=== PATIENT | female | born 1975 | race Hispanic/Latino ===

== ENCOUNTER → 2017-06-02 | Outpatient (REF) | payer OTHER | LOC: M LAB REF 16:25 | PROVIDERS: ATTEND Physician Assistant | DX: R30.0 Dysuria (principal) ==

== ENCOUNTER → 2017-06-19 | Outpatient (CLI) | payer OTHER | LOC: M PAIN 13:45 | DX: M79.1 Myalgia (principal); M47.812 Spondylosis without myelopathy or radiculopathy, cervical region; M50.123 Cervical disc disorder at C6-C7 level with radiculopathy; M54.5 Low back pain; G89.29 Other chronic pain; I10 Essential (primary) hypertension; Z79.899 Other long term (current) drug therapy; Z85.850 Personal history of malignant neoplasm of thyroid; Z85.43 Personal history of malignant neoplasm of ovary | CPT/HCPCS: G0463 ==

== ENCOUNTER → 2017-06-23 | Outpatient (REF) | payer OTHER ==
[2017-06-23 22:03] LABS: FREE T4 1.47 NG/DL (0.76-1.46)
[2017-06-24 11:31] LABS: THYROGLOBULIN ANTIBODY 64.9 U/ML (<60.0)
== END ==
LOC: M LABDRAW1 19:28
DX: Z85.850 Personal history of malignant neoplasm of thyroid (principal); E89.0 Postprocedural hypothyroidism

== ENCOUNTER → 2017-06-27 | Outpatient (REF) | payer OTHER | LOC: M LAB REF 17:53 | DX: R30.0 Dysuria (principal) | CPT/HCPCS: 87086 ==

== ENCOUNTER → 2017-07-06 | Outpatient (CLI) | payer OTHER | LOC: M PAIN 11:00 | DX: M79.1 Myalgia (principal); M47.812 Spondylosis without myelopathy or radiculopathy, cervical region; G89.29 Other chronic pain; E06.3 Autoimmune thyroiditis; I10 Essential (primary) hypertension; Z79.891 Long term (current) use of opiate analgesic; Z79.899 Other long term (current) drug therapy | CPT/HCPCS: G0463 ==

== ENCOUNTER → 2017-07-14 | Outpatient (CLI) | payer OTHER ==
[~2017-07-14] MED LIST: ISOVUE-M 300 61% 15ML VIAL (Q9967) As Ordered; LIDOCAINE 1% SDV INJ 30 ML VIAL As Ordered; diazePAM 5 MG TAB As Ordered; methylPREDNISolone SUSP 40 MG/ML (DEPO-medrol) VIAL (J1030) As Ordered; oxyCODONE 5MG TAB As Ordered
== END ==
LOC: M PAIN 11:45
DX: G89.29 Other chronic pain (principal); M50.13 Cervical disc disorder with radiculopathy, cervicothoracic region; I10 Essential (primary) hypertension; D64.9 Anemia, unspecified; K58.9 Irritable bowel syndrome, unspecified; E28.2 Polycystic ovarian syndrome; Z79.891 Long term (current) use of opiate analgesic; Z79.899 Other long term (current) drug therapy
CPT/HCPCS: J1030

== ENCOUNTER → 2017-08-10 | Outpatient (CLI) | payer OTHER | LOC: M PAIN 14:30 | DX: G89.29 Other chronic pain (principal); M79.1 Myalgia; M47.812 Spondylosis without myelopathy or radiculopathy, cervical region; I10 Essential (primary) hypertension; D64.9 Anemia, unspecified; K58.9 Irritable bowel syndrome, unspecified; E28.2 Polycystic ovarian syndrome; E06.3 Autoimmune thyroiditis; Z79.891 Long term (current) use of opiate analgesic; Z79.899 Other long term (current) drug therapy | CPT/HCPCS: G0463 ==

== ENCOUNTER → 2017-09-03 | Outpatient (CLI) | payer OTHER | LOC: M RAD 15:56 | DX: J32.4 Chronic pansinusitis (principal) | CPT/HCPCS: 70220 ==

== ENCOUNTER → 2017-09-17 | Outpatient (CLI) | payer OTHER ==
[~2017-09-17] MED LIST changes: +BUPIVACAINE HCL 0.25% 10 ML VIAL As Ordered; +BUPIVACAINE HCL 0.25% 30 ML VIAL As Ordered; -ISOVUE-M 300 61% 15ML VIAL (Q9967) As Ordered; -LIDOCAINE 1% SDV INJ 30 ML VIAL As Ordered; +TRIAMCINOLONE ACETONIDE SUSP 40 MG/ML VIAL (J3301) As Ordered; -methylPREDNISolone SUSP 40 MG/ML (DEPO-medrol) VIAL (J1030) As Ordered
== END ==
LOC: M PAIN 09:30
DX: G89.29 Other chronic pain (principal); M54.81 Occipital neuralgia; I10 Essential (primary) hypertension; Z79.899 Other long term (current) drug therapy
CPT/HCPCS: J3301

== ENCOUNTER → 2017-10-16 | Outpatient (CLI) | payer OTHER | LOC: M PAIN 14:15 | DX: M50.20 Other cervical disc displacement, unspecified cervical region (principal); G89.29 Other chronic pain; M79.1 Myalgia; I10 Essential (primary) hypertension; E06.3 Autoimmune thyroiditis; Z79.899 Other long term (current) drug therapy; Z85.850 Personal history of malignant neoplasm of thyroid | CPT/HCPCS: G0463 ==

== ENCOUNTER → 2018-01-18 | Outpatient (CLI) | payer OTHER ==
[~2018-01-18] MED LIST changes: -BUPIVACAINE HCL 0.25% 10 ML VIAL As Ordered; -BUPIVACAINE HCL 0.25% 30 ML VIAL As Ordered; +ISOVUE-M 300 61% 15ML VIAL (Q9967) As Ordered; +LIDOCAINE 1% SDV INJ 30 ML VIAL As Ordered; -TRIAMCINOLONE ACETONIDE SUSP 40 MG/ML VIAL (J3301) As Ordered; +diphenhydrAMINE 25 MG CAP As Ordered; +methylPREDNISolone SUSP 40 MG/ML (DEPO-medrol) VIAL (J1030) As Ordered
== END ==
LOC: M PAIN 13:00
DX: M50.13 Cervical disc disorder with radiculopathy, cervicothoracic region (principal); I10 Essential (primary) hypertension; D64.9 Anemia, unspecified; K58.9 Irritable bowel syndrome, unspecified; M06.9 Rheumatoid arthritis, unspecified; E89.0 Postprocedural hypothyroidism; Z85.850 Personal history of malignant neoplasm of thyroid; E06.3 Autoimmune thyroiditis; E28.2 Polycystic ovarian syndrome; Z79.899 Other long term (current) drug therapy
CPT/HCPCS: J1030

== ENCOUNTER → 2018-04-14 | Outpatient (CLI) | payer OTHER ==
[2018-04-14 15:13] LABS: BASO % 0.5 % (0.0-1.0); EOS # 0.1 10^3/uL (0.0-0.50); EOS % 1.3 % (0.0-3.0); HEMATOCRIT 40.6 % (36.0-47.0); HEMOGLOBIN 12.6 g/dl (12.0-15.5); IMMATURE GRANULOCYTE % 0.4 % (0-3.0); LYMPH # 1.9 10^3/uL (1.5-4.5); LYMPH % 25.3 % (24.0-44.0); MEAN CORPUSCULAR HEMOGLOBIN 27.9 pg (27.0-33.0); MEAN CORPUSCULAR VOLUME 89.8 fl (80.0-96.0); MONO # 0.4 10^3/uL (0.0-0.8); MONO % 5.2 % (0.0-5.0); NEUTROPHILS % 67.3 % (36.0-66.0); PLATELET COUNT, AUTOMATED 535 10^3/uL (150-450); RED BLOOD COUNT 4.52 10^6/uL (4.00-5.40); WHITE BLOOD COUNT 7.4 10^3/uL (4.0-10.0)
[2018-04-14 15:26] LABS: C REACTIVE PROTEIN QUANTITATIV 1.23 MG/DL (0.00-0.30)
[2018-04-14 15:46] LABS: ERYTHROCYTE SEDIMENTATION RATE 26 mm/hr (0-20)
[2018-04-14 16:37] LABS: CONTROL LINE HPYORI INT CTR LINE PRESENT; H PYLORI QUALITATIVE IgG NEGATIVE (NEGATIVE)
[2018-04-17 00:08] LABS: ANCA-ATYPICAL <1:20 titer (Neg:<1:20); ANTI-SACCHAROMYCES CEREV. IgA 25.1 Units (0.0-24.9); ANTI-SACCHAROMYCES CEREV. IgG 69.2 Units (0.0-24.9); CYTOPLASMIC NEUTROP AB ANCA-C <1:20 titer (Neg:<1:20); PERINUCLEAR AB ANCA-P <1:20 titer (Neg:<1:20)
== END ==
LOC: M LAB 12:46
DX: K59.00 Constipation, unspecified (principal)
CPT/HCPCS: 86256

== ENCOUNTER → 2018-04-17 | Outpatient (REF) | payer OTHER | LOC: M LAB REF 13:29 | DX: R39.15 Urgency of urination (principal) ==

== ENCOUNTER → 2018-04-26 | Outpatient (REF) | payer OTHER | LOC: M LAB REF 16:34 | DX: R30.0 Dysuria (principal) ==

== ENCOUNTER → 2018-04-29 | Outpatient (CLI) | payer OTHER | LOC: M LAB 15:20 | DX: R76.11 Nonspecific reaction to tuberculin skin test without active tuberculosis (principal) | CPT/HCPCS: 71046 ==

== ENCOUNTER → 2018-05-05 | Outpatient (REF) | payer OTHER ==
[2018-05-05 21:02] LABS: AMORPHOUS SEDIMENT LARGE (NEGATIVE); APPEARANCE, URINE TURBID (CLEAR); BACTERIA, URINE AUTO 1+ (NEGATIVE); BILIRUBIN, URINE AUTO NEGATIVE (NEGATIVE); BLOOD, URINE BLOOD NEGATIVE (NEGATIVE); COLOR, URINE RED (YELLOW); GLUCOSE, URINE (UA) AUTO NEGATIVE (NEGATIVE); KETONE, URINE AUTO NEGATIVE (NEGATIVE); LEUKOCYTE ESTERASE, URINE AUTO NEGATIVE (NEGATIVE); MUCUS, URINE SMALL (NEGATIVE); NITRITE, URINE AUTO POSITIVE (NEGATIVE); PROTEIN, URINE AUTO NEGATIVE (NEGATIVE); RBC, URINE AUTO 1 /HPF (0-3); SPECIFIC GRAVITY URINE AUTO 1.026 (1.002-1.035); SQUAMOUS EPITHELIAL CELL UR AU 2 /HPF (0-6); WBC, URINE AUTO 2 /HPF (0-3)
[2018-05-05 22:50] LABS: CHLAMYDIA DNA AMPLIFICATION NEGATIVE (NEGATIVE); GC DNA AMPLIFICATION NEGATIVE (NEGATIVE)
== END ==
LOC: M SFHCLUC 09:46
DX: R30.0 Dysuria (principal)
CPT/HCPCS: 81001

== ENCOUNTER → 2018-05-10 | Outpatient (CLI) | payer OTHER ==
[~2018-05-10] MED LIST changes: +BUPIVACAINE HCL 0.25% 30 ML VIAL As Ordered; +TRIAMCINOLONE ACETONIDE SUSP 40 MG/ML VIAL (J3301) As Ordered; -methylPREDNISolone SUSP 40 MG/ML (DEPO-medrol) VIAL (J1030) As Ordered
== END ==
LOC: M PAIN 08:30
DX: G89.29 Other chronic pain (principal); M47.812 Spondylosis without myelopathy or radiculopathy, cervical region; I10 Essential (primary) hypertension; E03.9 Hypothyroidism, unspecified; E06.3 Autoimmune thyroiditis; M06.9 Rheumatoid arthritis, unspecified; Z79.899 Other long term (current) drug therapy; Z85.850 Personal history of malignant neoplasm of thyroid
CPT/HCPCS: J3301

== ENCOUNTER → 2018-05-19 | Outpatient (CLI) | payer OTHER | LOC: M ST 12:15 | DX: R13.10 Dysphagia, unspecified (principal) | CPT/HCPCS: 74230 ==

== ENCOUNTER 2018-05-21 11:12 | Day surgery (SDC) | payer OTHER ==
[~2018-05-21] VITALS: Ht 162.6 cm; Wt 83.0 kg
[~2018-05-21 11:12] MED LIST changes: +BARIUM SULFATE 700 MG TABLET (E-Z-DISK) As Ordered ONE; -BUPIVACAINE HCL 0.25% 30 ML VIAL As Ordered; +E-Z-PAQUE 96% w/w SUSP 176GM BTL As Ordered ONE; +FOLI800C PO; -ISOVUE-M 300 61% 15ML VIAL (Q9967) As Ordered; -LIDOCAINE 1% SDV INJ 30 ML VIAL As Ordered; +LISI20TA3 PO; +MAGN400T2 PO; +METH2.5T48 PO; +MIRA3350 PO; +NS 1,000 ML IV ONE; +SENN18TA PO; +TIZA2CAP6 PO; -TRIAMCINOLONE ACETONIDE SUSP 40 MG/ML VIAL (J3301) As Ordered; +VARIBAR NECTAR 40% w/v 240ML SUSP BTL As Ordered ONE; +VARIBAR PUDDING 40% w/v 230ML TUBE As Ordered ONE; +ZANTTAB PO; +[UNRECOGNIZED DRUG - CODE] PO; +bentyl PO; -diazePAM 5 MG TAB As Ordered; -diphenhydrAMINE 25 MG CAP As Ordered; -oxyCODONE 5MG TAB As Ordered
[2018-05-21] MEDS ORDERED: PROPOFOL 500 MG/50 ML VIAL As Ordered ONE (11:55)
[2018-05-21] MEDS ORDERED: fentaNYL 100 MCG/2 ML INJECTION (J3010) As Ordered ONE (11:58)
[2018-05-21] MEDS ORDERED: LIDOCAINE 2% INJ 100 MG/5 ML SDV (FOR ANES.) As Ordered ONE (12:01)
[2018-05-21] MEDS ORDERED: GLYCOPYRROLATE INJ 0.2 MG/ML 2 ML VIAL As Ordered ONE (12:56)
--- NOTE | 2018-05-21 13:42 | ROOR ---
Patient Name: Cinda Le Procedure Date: 05/21/2018 12:44 PM Date of : 1975 Age: 42 Room: [facility] Gender: Female Note Status: Finalized Procedure: Upper GI endoscopy Indications: Epigastric abdominal pain, Dysphagia Providers: Kameron Bowling MD Referring MD: ARUN DIAS MD Requesting Provider: Medicines: Monitored Anesthesia Care Complications: No immediate complications. Procedure: Pre-Anesthesia Assessment: - Prior to the procedure, a History and Physical was performed, and patient medications and allergies were reviewed. The patient is competent. The risks and benefits of the procedure and the sedation options and risks were discussed with the patient. All questions were answered and informed consent was obtained. Patient identification and proposed procedure were verified by the physician, the nurse and the anesthesiologist in the procedure room. Mental Status Examination: alert and oriented. Airway Examination: normal oropharyngeal airway and neck mobility. Respiratory Examination: clear to auscultation. CV Examination: normal. Prophylactic Antibiotics: The patient does not require prophylactic antibiotics. Prior Anticoagulants: The patient has taken no previous anticoagulant or antiplatelet agents. ASA Grade Assessment: II - A patient with mild systemic disease. After reviewing the risks and benefits, the patient was deemed in satisfactory condition to undergo the procedure. The anesthesia plan was to use monitored anesthesia care (MAC). Immediately prior to administration of medications, the patient was re-assessed for adequacy to receive sedatives. The heart rate, respiratory rate, oxygen saturations, blood pressure, adequacy of pulmonary ventilation, and response to care were monitored throughout the procedure. The physical status of the patient was re-assessed after the procedure. The Endoscope was introduced through the mouth, and advanced to the second part of duodenum. The upper GI endoscopy was accomplished without difficulty. The patient tolerated the procedure well. Findings: The Z-line was regular and was found 39 cm from the incisors. Biopsies were obtained from the proximal and distal esophagus with cold forceps for histology of suspected eosinophilic esophagitis. Verification of patient identification for the specimen was done by the physician and nurse using the patient's name, date and medical record number. Estimated blood loss was minimal. No endoscopic abnormality was evident in the esophagus to explain the patient's complaint of dysphagia. Diffuse mild inflammation characterized by erythema and granularity was found in the gastric antrum. Biopsies were taken with a cold forceps for Helicobacter pylori testing. No gross lesions were noted in the duodenal bulb, in the second portion of the duodenum and in the area of the papilla. Biopsies for histology were taken with a cold forceps for evaluation of celiac disease. Impression: - Z-line regular, 39 cm from the incisors. Biopsied. - No endoscopic esophageal abnormality to explain patient's dysphagia. - Gastritis. Biopsied. - No gross lesions in the duodenal bulb, in the second portion of the duodenum and in the area of the papilla. Biopsied. Recommendation: - Patient has a contact number available for emergencies. The signs and symptoms of potential delayed complications were discussed with the patient. Return to normal activities tomorrow. Written discharge instructions were provided to the patient. - Resume previous diet. - Continue present medications. - Await pathology results. - Based on the biopsy results you will receive a phone call from GI clinic in 2-3 weeks to review the pathology results AND/OR your results will be faxed to your Primary care physician. - Return to primary care physician. Kameron Bowling MD Kameron Bowling MD 05/21/2018 1:41:53 PM This report has been signed electronically. Number of Addenda: 0 Note Initiated On: 05/21/2018 12:44 PM Estimated Blood Loss: Estimated blood loss was minimal.
--- NOTE | 2018-05-21 13:46 | ROOR ---
Patient Name: Cinda Le Procedure Date: 05/21/2018 12:46 PM Date of : 1975 Age: 42 Room: [facility] Gender: Female Note Status: Finalized Procedure: Colonoscopy Indications: Suspected Crohn's disease, Constipation Providers: Kameron Bowling MD Referring MD: ARUN DIAS MD Requesting Provider: Medicines: Monitored Anesthesia Care Complications: No immediate complications. Procedure: Pre-Anesthesia Assessment: - Prior to the procedure, a History and Physical was performed, and patient medications and allergies were reviewed. The patient is competent. The risks and benefits of the procedure and the sedation options and risks were discussed with the patient. All questions were answered and informed consent was obtained. Patient identification and proposed procedure were verified by the physician, the nurse and the anesthesiologist in the procedure room. Mental Status Examination: alert and oriented. Airway Examination: normal oropharyngeal airway and neck mobility. Respiratory Examination: clear to auscultation. CV Examination: normal. Prophylactic Antibiotics: The patient does not require prophylactic antibiotics. Prior Anticoagulants: The patient has taken no previous anticoagulant or antiplatelet agents. ASA Grade Assessment: II - A patient with mild systemic disease. After reviewing the risks and benefits, the patient was deemed in satisfactory condition to undergo the procedure. The anesthesia plan was to use monitored anesthesia care (MAC). Immediately prior to administration of medications, the patient was re-assessed for adequacy to receive sedatives. The heart rate, respiratory rate, oxygen saturations, blood pressure, adequacy of pulmonary ventilation, and response to care were monitored throughout the procedure. The physical status of the patient was re-assessed after the procedure. The Colonoscope was introduced through the anus and advanced to the terminal ileum, with identification of the appendiceal orifice and IC valve. The colonoscopy was performed without difficulty. The patient tolerated the procedure well. The quality of the bowel preparation was [Prep Quality]. [Anatomical Structures]. Findings: The perianal and digital rectal examinations were normal. The terminal ileum appeared normal. Biopsies were taken with a cold forceps for histology. Verification of patient identification for the specimen was done by the physician and nurse using the patient's name, date and medical record number. Estimated blood loss was minimal. Normal mucosa was found in the entire colon. Four biopsies were obtained in the rectum and in the sigmoid colon with cold forceps for histology. Non-bleeding external and internal hemorrhoids were found during retroflexion. The hemorrhoids were small. Impression: - The examined portion of the ileum was normal. Biopsied. - Normal mucosa in the entire examined colon. - Non-bleeding external and internal hemorrhoids. - Four biopsies were obtained in the rectum and in the sigmoid colon. Recommendation: - Patient has a contact number available for emergencies. The signs and symptoms of potential delayed complications were discussed with the patient. Return to normal activities tomorrow. Written discharge instructions were provided to the patient. - Resume previous diet. - Continue present medications. - Await pathology results. - Repeat colonoscopy at age 51 for screening purposes. - Based on the biopsy results you will receive a phone call from GI clinic in 2-3 weeks to review the pathology results AND/OR your results will be faxed to your Primary care physician. - Return to primary care physician. Kameron Bowling MD Kameron Bowling MD 05/21/2018 1:45:40 PM This report has been signed electronically. Number of Addenda: 0 Note Initiated On: 05/21/2018 12:46 PM Estimated Blood Loss: Estimated blood loss was minimal.
[2018-05-21 14:00] VITALS: BP 126/75
== END 2018-05-21 14:37 | disposition home or self-care (01) ==
LOC: M OPP 11:12
PROVIDERS: ATTEND Internal Medicine Gastroenterology
DX: K64.8 Other hemorrhoids (principal); K63.5 Polyp of colon; R13.10 Dysphagia, unspecified; K29.70 Gastritis, unspecified, without bleeding; R10.13 Epigastric pain; M06.9 Rheumatoid arthritis, unspecified; I10 Essential (primary) hypertension; K58.9 Irritable bowel syndrome, unspecified; G43.909 Migraine, unspecified, not intractable, without status migrainosus; Z79.899 Other long term (current) drug therapy; Z85.850 Personal history of malignant neoplasm of thyroid
CPT/HCPCS: 43239; 45380; 88305; J3010

== ENCOUNTER → 2018-05-24 | Outpatient (CLI) | payer OTHER ==
[~2018-05-24] MED LIST changes: -BARIUM SULFATE 700 MG TABLET (E-Z-DISK) As Ordered ONE; -E-Z-PAQUE 96% w/w SUSP 176GM BTL As Ordered ONE; -NS 1,000 ML IV ONE; -VARIBAR NECTAR 40% w/v 240ML SUSP BTL As Ordered ONE; -VARIBAR PUDDING 40% w/v 230ML TUBE As Ordered ONE
--- NOTE | 2018-06-17 00:52 | ECWPNPC ---
PATIENT NAME: JOSIE MARTE : 1975 GENDER: FEMALE VISIT DATE: 05/24/2018 DISCHARGE DATE: 05/24/18 1553 VISIT LOCKED DATE TIME: PHYSICIAN: RAMU FLETCHER RESOURCE: RAMU FLETCHER REASON FOR APPOINTMENT 1. POST PROCEDURE HISTORY OF PRESENT ILLNESS DEPRESSION SCREENING: PHQ-2 IN LAST TWO WEEKS HAVE YOU BEEN BOTHERED BY LITTLE INTEREST OR PLEASURE IN DOING THINGSNO FEELING DOWN, DEPRESSED, OR HOPELESSNO HISTORY OF PRESENT ILLNESS: HERE FOR POST PROCEDURE F/U.HAD BILATERAL CERVICAL THERAPEUTIC FACET BLOCK ON 05-10-18.REPORTING IMPROVEMENT IN RIGHT NECK PAIN.HAS NOT HELPED HEADACHES OR SEVERE BURNING PAIN IN NECK.RECENTLY DIAGNOSED WITH RHEUMATOID ARTHRITIS AND WILL BE STARTING GRISEL SOON.DISCUSSED MEDICATION AND TREATMENT OPTIONS. PAIN THE PATIENT DESCRIBES THE PAIN... FALL RISK SCREENING: SCREENING :NO FALLS IN THE PAST YEAR CURRENT MEDICATIONS TAKING PRILOSEC 20 MG CAPSULE DELAYED RELEASE 1 CAPSULE ORALLY ONCE A DAY TAKING ZANTAC 150 MG TABLET 1 TABLET AT BEDTIME ORALLY ONCE A DAY TAKING BENTYL 10 MG CAPSULE 2 CAPSULES ORALLY PRN TAKING MIRALAX - PACKET 1 PACKET MIXED WITH 8 OUNCES OF FLUID ORALLY ONCE A DAY TAKING MAGNESIUM OXIDE 250 MG TABLET 1 TABLET NEEDED ORALLY TWICE A DAY TAKING LISINOPRIL 20 MG TABLET 1 TABLET ORALLY ONCE A DAY TAKING SYNTHROID 175 MCG TABLET 1 TABLET ON AN EMPTY STOMACH IN THE MORNING ORALLY ONCE A DAY TAKING TIZANIDINE HCL 4 MG TABLET 1 TAB ORALLY Q6H PRN MDD4 TAKING FIORICET/CODEINE [id number] MG CAPSULE 1 CAPSULE NEEDED ORALLY Q6HPRN MDD4 #40 TAB SHOULD LAST 30 DAYS TAKING OTEZLA 20MG ORAL DAILY NOT-TAKING PHENAZOPYRIDINE HCL 200 MG TABLET 2 TABLETS AFTER MEALS ORALLY THREE TIMES A DAY NOT-TAKING METHOTREXATE 2.5 MG TABLET 6 TABS ORALLY ONCE WEEKLY NOT-TAKING FLUCONAZOLE 150 MG TABLET 1 TABLET ORALLY ONCE, MAY REPEAT X 1 DOSE IN 72 HOURS IF NO RELIEF (FOR YEAST INFECTION) NOT-TAKING MACROBID 100 MG CAPSULE 1 CAPSULE WITH FOOD ORALLY EVERY 12 HRS MEDICATION LIST REVIEWED AND RECONCILED WITH THE PATIENT PAST MEDICAL HISTORY THYROID CANCER HTN CHRONIC NECK PAIN HASHIMOTOS PCOS ANEMIA IBS RHEUMATOID ARTHRITIS ALLERGIES N.K.D.A. SURGICAL HISTORY TOTAL THYROIDECTOMY 2010 SYMPATHOMECTOMY FOR HYPERHIDROSIS 2000 BLADDER SLING 2006 COLONOSCOPY/ENDOSCOPY 05/2019 SOCIAL HISTORY GENERAL: TOBACCO USE ARE YOU A:NONSMOKER LUNG CANCER SCREENING SMOKING STATUS:NON SMOKER ALCOHOL SCREENING DID YOU HAVE A DRINK CONTAINING ALCOHOL IN THE PAST YEAR?NO POINTS0 INTERPRETATIONNEGATIVE RECREATIONAL DRUG USE DRUG USE?NO CAFFEINE CAFFEINE USE?NO JUDAISM JUDAISM MU-ISM LANGUAGE LANGUAGES SPOKEN:MONTSERRATIAN EDUCATION LEVEL OF EDUCATION:NOT FINISHED COLLEGE LEARNING BARRIERS / SPECIAL NEEDS BARRIERS TO LEARNING?NO HEARING IMPAIRED?NO VISION IMPAIRED?NO COGNITIVELY IMPAIRED?NO READINESS TO LEARN?YES LEARNING PREFERENCES?YES :DEMONSTRATION/VERBAL INSTRUCTION LEARNING CAPABILITIES PRESENT?YES EMOTIONAL BARRIERS?NO SPECIAL DEVICES?NO VISUAL AID EXPERT NEEDED?NO DOMESTIC VIOLENCE DO YOU FEEL SAFE IN YOUR ENVIRONMENT?YES 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 EXERCISE: WALKS. MARITAL STATUS: . OTHERS AT HOME: SPOUSE, CHILD. PAIN CLINIC PFS, CLERGY, PUBLIC HEALTH REFERRALS PFS REFERRAL NEEDED?NO CLERGY REFERRAL NEEDED?NO PUBLIC HEALTH REFERRAL NEEDED?NO HAS THE PATIENT BEEN EDUCATED REGARDING HIS/HER PLAN OF CARE?YES 01/18 CERVICAL EPIDURAL HAS THE PATIENT BEEN EDUCATED REGARDING PAIN, THE RISK FOR PAIN, THE IMPORTANCE OF EFFECTIVE PAIN MANAGEMENT, AND THE PAIN ASSESSMENT PROCESS?YES ADVANCE DIRECTIVE ADVANCE DIRECTIVE DISCUSSED WITH PATIENT:YES STATES HER , APOLLO, IS HER HCP [id number] Leticia TARIQ RNREVIEWED WITH PATIENT 05/10/18 0924 JS. HOSPITALIZATION/MAJOR DIAGNOSTIC PROCEDURE CHILDBIRTH REVIEW OF SYSTEMS REVIEWED BY: PROVIDER: RAMU SKINNER . CONSTITUTIONAL: ANY CHANGE IN YOUR MEDICAL CONDITION? YES, DX WITH RA 2 MOS AGO . CHILLS NO . FEVER NO . INFECTION: DO YOU HAVE NEW INFECTIONS? NO . DO YOU HAVE HISTORY OF MRSA? NO . MUSCULOSKELETAL: ANY NEW PATTERNS OF PAIN OR NUMBNESS? YES, STABBING PAIN TO RIGHT POSTERIOR UPPER ARM X 1 MONTH . GASTROENTEROLOGY: ANY NEW CHANGE IN BOWEL CONTROL? NO . GENITOURINARY: ANY NEW CHANGE IN BLADDER CONTROL? NO . IS THERE A CHANCE YOU COULD BE ? NO . HEMATOLOGY/LYMPH: DO YOU TAKE ANY BLOOD THINNERS? (FOR EXAMPLE- COUMADIN, PLAVIX, AGGRENOX, PLATEL, PRADAXA, OR XARELTO) NO . WHEN WAS YOUR LAST DOSE? DATE: TIME: . NEUROLOGY: HAVE YOU FALLEN IN THE PAST 6 MONTHS? NO . ANY NEW EXTREMITY NUMBNESS OR WEAKNESS? NO . CARDIOLOGY: DO YOU HAVE A PACEMAKER OR DEFIBRILLATOR? NO . RESPIRATORY: HAVE YOU BEEN SICK IN THE PAST WEEK? NO . FEVER NO . FLU LIKE SYMPTOMS? NO . COUGH NO . INTEGUMENTARY: DO YOU HAVE ANY RASHES OR OPEN SORES? NO . ALLERGIC/IMMUNO: ARE YOU ALLERGIC TO SHELLFISH OR IV DYE? NO . ANY NEW ALLERGIES? NO . PSYCHIATRIC: DO YOU HAVE THOUGHTS OF HURTING YOURSELF OR SOMEONE ELSE? NO . ARE YOU ABUSED, NEGLECTED, OR IN AN UNSAFE ENVIRONMENT? NO . ENDOCRINOLOGY: ARE YOU DIABETIC? NO . OTHER: DO YOU NEED ANY PRESCRIPTIONS? YES, TIZANIDINE . IF YES, PLEASE LIST: ____ . ANY NEW PROBLEMS WITH YOUR MEDICATIONS? NO . WHEN DID YOU LAST EAT? ____ . WHEN DID YOU LAST DRINK? ____ . WHAT DID YOU LAST DRINK? ____ . NAME OF PERSON DRIVING YOU HOME? ____ . DO YOU HAVE ANY OTHER QUESTIONS OR CONCERNS YES, STILL HAVE BURNING PAIN THAT RADIATES FROM NECK TO BILAT SHOULDERS WITH PHYSICAL ACTIVITY CAUSES HEADACHE X 20 YEARS . VITAL SIGNS WT 187 LBS, HT 64 IN, BMI 32.09 INDEX, BP 136/82 MM HG, HR 83 /MIN, RR 18 /MIN, TEMP 97.0 F, OXYGEN SAT % 96%, NA INITIALS AW 1459, REVIEWED BY: EM. EXAMINATION GENERAL EXAMINATION: GENERAL APPEARANCE:ALERT.NO ACUTE DISTRESS . PSYCHAFFECT NORMAL . NECK:TRACHEA MIDLINE. NO CERVICAL OR SUPRACLAVICULAR LYMPHADENOPATHY NOTED . LUNGS:LUNG BARNES ARE CLEAR TO AUSCULTATION BILATERALLY. GOOD MOVEMENT OF AIR . HEART:S1, S2 IN A REGULAR RATE AND RHYTHM. NO SIGNIFICANT MURMURS, RUBS OR GALLOPS NOTED . DIAGNOSTIC TESTS REVIEWEDMRI CERVICAL GVUNT-2-15-16-REVIEWED . ASSESSMENTS CERVICAL DISC DISORDER WITH RADICULOPATHY OF CERVICOTHORACIC REGION - M50.13 (PRIMARY) RHEUMATOID ARTHRITIS INVOLVING MULTIPLE SITES WITH POSITIVE RHEUMATOID FACTOR - M05.79 TREATMENT CERVICAL DISC DISORDER WITH RADICULOPATHY OF CERVICOTHORACIC REGION START CYMBALTA CAPSULE DELAYED RELEASE PARTICLES, 30 MG, 1 CAPSULE, ORALLY, ONCE A DAY, 30 DAY(S), 30, REFILLS 2 REFILL TIZANIDINE HCL TABLET, 4 MG, 1 TAB, ORALLY, Q6H PRN MDD4, 30 DAY(S), 60, REFILLS 2 PREVENTIVE MEDICINE PAIN CLINIC TEACHING: MEDICATIONS CYMBALTA HANDOUT PRINTED, REVIEWED AND GIVEN TO PT. EM. PROCEDURE CODES FA211 ESTABILISHED PATIENT [facility] CHARGE DISPOSITION & COMMUNICATION FOLLOW UP 6-8 WKS ELECTRONICALLY SIGNED BY BRODY ARNOLD ON 06/16/2018 AT 01:48 PM EST DISCLAIMER : THIS IS A VISIT SUMMARY EXTRACTED FROM THE [employer] CHART. IT IS NOT A COPY OF THE [employer] PROGRESS NOTE. NOLAN
== END ==
LOC: M PAIN 14:45
PROVIDERS: ATTEND Nurse Practitioner Family
DX: M50.13 Cervical disc disorder with radiculopathy, cervicothoracic region (principal); M05.79 Rheumatoid arthritis with rheumatoid factor of multiple sites without organ or systems involvement; I10 Essential (primary) hypertension; D64.9 Anemia, unspecified; K58.9 Irritable bowel syndrome, unspecified; E06.3 Autoimmune thyroiditis; E28.2 Polycystic ovarian syndrome; E89.0 Postprocedural hypothyroidism; Z85.850 Personal history of malignant neoplasm of thyroid; Z79.899 Other long term (current) drug therapy

== ENCOUNTER → 2018-05-25 | Outpatient (REF) | payer OTHER | LOC: M SMT 13:05 | DX: R30.0 Dysuria (principal) ==

== ENCOUNTER → 2018-07-01 | Outpatient (REF) | payer OTHER ==
[2018-07-01 18:36] LABS: APPEARANCE, URINE HAZY (CLEAR); BACTERIA, URINE AUTO 1+ (NEGATIVE); BILIRUBIN, URINE AUTO NEGATIVE (NEGATIVE); BLOOD, URINE BLOOD NEGATIVE (NEGATIVE); COLOR, URINE YELLOW (YELLOW); GLUCOSE, URINE (UA) AUTO NEGATIVE (NEGATIVE); KETONE, URINE AUTO NEGATIVE (NEGATIVE); LEUKOCYTE ESTERASE, URINE AUTO 2+ (NEGATIVE); MUCUS, URINE SMALL (NEGATIVE); NITRITE, URINE AUTO NEGATIVE (NEGATIVE); PROTEIN, URINE AUTO NEGATIVE (NEGATIVE); RBC, URINE AUTO 1 /HPF (0-3); SPECIFIC GRAVITY URINE AUTO 1.018 (1.002-1.035); SQUAMOUS EPITHELIAL CELL UR AU 4 /HPF (0-6); UROBILINOGEN, URINE AUTO 0.2 mg/dL (0.0-2.0); WBC, URINE AUTO 4 /HPF (0-3)
== END ==
LOC: M SMT 17:22
PROVIDERS: ATTEND Urology Pediatric Urology
DX: R30.0 Dysuria (principal)

== ENCOUNTER → 2018-07-14 | Outpatient (CLI) | payer OTHER ==
--- NOTE | 2018-07-26 00:24 | ECWPNPC ---
PATIENT NAME: JOSIE MARTE : 1975 GENDER: FEMALE VISIT DATE: 07/14/2018 DISCHARGE DATE: 07/14/18 1304 VISIT LOCKED DATE TIME: PHYSICIAN: RAMU FLETCHER RESOURCE: RAMU FLETCHER REASON FOR APPOINTMENT 1. 6-8 WK HISTORY OF PRESENT ILLNESS HISTORY OF PRESENT ILLNESS: HERE FOR POST PROCEDURE F/U.HAD BILATERAL CERVICAL THERAPEUTIC FACET BLOCK ON 05-10-18.REPORTED IMPROVEMENT IN RIGHT NECK PAIN.CONTIUES WITH DAILY HEADACHES.RECENTLY DIAGNOSED WITH RHEUMATOID ARTHRITIS AND WILL BE STARTING GRISEL SOON.DISCUSSED MEDICATION AND TREATMENT OPTIONS.RATING PAIN VAS 9/10. PAIN THE PATIENT DESCRIBES THE PAIN... THE PATIENT DESCRIBES THE PAIN... FALL RISK SCREENING: SCREENING :NO FALLS IN THE PAST YEAR CURRENT MEDICATIONS TAKING PRILOSEC 20 MG CAPSULE DELAYED RELEASE 1 CAPSULE ORALLY ONCE A DAY TAKING ZANTAC 150 MG TABLET 1 TABLET AT BEDTIME ORALLY ONCE A DAY TAKING BENTYL 10 MG CAPSULE 2 CAPSULES ORALLY PRN TAKING MIRALAX - PACKET 1 PACKET MIXED WITH 8 OUNCES OF FLUID ORALLY ONCE A DAY TAKING MAGNESIUM OXIDE 250 MG TABLET 1 TABLET NEEDED ORALLY TWICE A DAY TAKING LISINOPRIL 20 MG TABLET 1 TABLET ORALLY ONCE A DAY TAKING SYNTHROID 150 MCG TABLET 1 TABLET ON AN EMPTY STOMACH IN THE MORNING ORALLY ONCE A DAY TAKING OTEZLA 20MG ORAL DAILY TAKING ZOFRAN ODT 4 MG TABLET DISINTEGRATING 1 TABLET ON THE TONGUE AND ALLOW TO DISSOLVE ORALLY EVERY 8 HRS TAKING FIORICET/CODEINE [id number] MG CAPSULE 1 CAPSULE NEEDED ORALLY Q6HPRN MDD4 #40 TAB SHOULD LAST 30 DAYS TAKING CYMBALTA 30 MG CAPSULE DELAYED RELEASE PARTICLES 1 CAPSULE ORALLY ONCE A DAY TAKING HUMIRA 40 MG/0.8ML PREFILLED SYRINGE KIT 0.8 ML SUBCUTANEOUS EVERY 2 WEEKS, NOTES: UNSURE OF DOSE MEDICATION LIST REVIEWED AND RECONCILED WITH THE PATIENT PAST MEDICAL HISTORY THYROID CANCER HTN CHRONIC NECK PAIN HASHIMOTOS PCOS ANEMIA IBS RHEUMATOID ARTHRITIS ALLERGIES N.K.D.A. SURGICAL HISTORY TOTAL THYROIDECTOMY 2010 SYMPATHOMECTOMY FOR HYPERHIDROSIS 2000 BLADDER SLING 2006 COLONOSCOPY/ENDOSCOPY 05/2019 FAMILY HISTORY FATHER: , DIAGNOSED WITH HYPERTENSION, HEART DISEASE MOTHER: ALIVE, DIAGNOSED WITH DIABETES SIBLINGS: ALIVE DAUGHTER(S): ALIVE 3DAUGHTER(S) - HEALTHY. NO KNOWN HX HISTORY OF UROLGICAL DISEASE OF DX. SOCIAL HISTORY GENERAL: TOBACCO USE ARE YOU A:NONSMOKER ARE YOU A:NONSMOKER LUNG CANCER SCREENING SMOKING STATUS:NON SMOKER SMOKING STATUS:NON SMOKER ALCOHOL SCREENING DID YOU HAVE A DRINK CONTAINING ALCOHOL IN THE PAST YEAR?NO POINTS0 INTERPRETATIONNEGATIVE RECREATIONAL DRUG USE DRUG USE?NO CAFFEINE CAFFEINE USE?NO CHURCH CHURCH JEW LANGUAGE LANGUAGES SPOKEN:SAMMARINESE EDUCATION LEVEL OF EDUCATION:NOT FINISHED COLLEGE LEARNING BARRIERS / SPECIAL NEEDS BARRIERS TO LEARNING?NO HEARING IMPAIRED?NO VISION IMPAIRED?NO COGNITIVELY IMPAIRED?NO READINESS TO LEARN?YES LEARNING PREFERENCES?YES :DEMONSTRATION/VERBAL INSTRUCTION LEARNING CAPABILITIES PRESENT?YES EMOTIONAL BARRIERS?NO SPECIAL DEVICES?NO MEDICAL MANAGER NEEDED?NO DOMESTIC VIOLENCE DO YOU FEEL SAFE IN YOUR ENVIRONMENT?YES 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 EXERCISE: WALKS. MARITAL STATUS: . OTHERS AT HOME: SPOUSE, CHILD. PAIN CLINIC PFS, CLERGY, PUBLIC HEALTH REFERRALS PFS REFERRAL NEEDED?NO CLERGY REFERRAL NEEDED?NO PUBLIC HEALTH REFERRAL NEEDED?NO HAS THE PATIENT BEEN EDUCATED REGARDING HIS/HER PLAN OF CARE?YES / CERVICAL EPIDURAL HAS THE PATIENT BEEN EDUCATED REGARDING PAIN, THE RISK FOR PAIN, THE IMPORTANCE OF EFFECTIVE PAIN MANAGEMENT, AND THE PAIN ASSESSMENT PROCESS?YES ADVANCE DIRECTIVE ADVANCE DIRECTIVE DISCUSSED WITH PATIENT:YES STATES HER , APOLLO, IS HER HCP [id number] REVIEWED WITH PATIENT 07/14/18 1218 JS. HOSPITALIZATION/MAJOR DIAGNOSTIC PROCEDURE CHILDBIRTH STOMACH PAIN 6 YEARS AGO REVIEW OF SYSTEMS REVIEWED BY: PROVIDER: RAMU SKINNER . CONSTITUTIONAL: ANY CHANGE IN YOUR MEDICAL CONDITION? NO . CHILLS NO . FEVER NO . INFECTION: DO YOU HAVE NEW INFECTIONS? NO . DO YOU HAVE HISTORY OF MRSA? NO . MUSCULOSKELETAL: ANY NEW PATTERNS OF PAIN OR NUMBNESS? YES, STATES INCREASING PAIN IN SEVERITY AND FREQUENCY . GASTROENTEROLOGY: ANY NEW CHANGE IN BOWEL CONTROL? NO . GENITOURINARY: ANY NEW CHANGE IN BLADDER CONTROL? NO . IS THERE A CHANCE YOU COULD BE ? NO . HEMATOLOGY/LYMPH: DO YOU TAKE ANY BLOOD THINNERS? (FOR EXAMPLE- COUMADIN, PLAVIX, AGGRENOX, PLATEL, PRADAXA, OR XARELTO) NO . WHEN WAS YOUR LAST DOSE? DATE: TIME: . NEUROLOGY: HAVE YOU FALLEN IN THE PAST 12 MONTHS? NO . ANY NEW EXTREMITY NUMBNESS OR WEAKNESS? NO . CARDIOLOGY: DO YOU HAVE A PACEMAKER OR DEFIBRILLATOR? NO . RESPIRATORY: HAVE YOU BEEN SICK IN THE PAST WEEK? NO . FEVER NO . FLU LIKE SYMPTOMS? NO . COUGH NO . INTEGUMENTARY: DO YOU HAVE ANY RASHES OR OPEN SORES? NO . ALLERGIC/IMMUNO: ARE YOU ALLERGIC TO IV DYE? NO . ANY NEW ALLERGIES? NO . PSYCHIATRIC: DO YOU HAVE THOUGHTS OF HURTING YOURSELF OR SOMEONE ELSE? NO . ARE YOU ABUSED, NEGLECTED, OR IN AN UNSAFE ENVIRONMENT? NO . ENDOCRINOLOGY: ARE YOU DIABETIC? NO . OTHER: DO YOU NEED ANY PRESCRIPTIONS? NO . IF YES, PLEASE LIST: ____ . ANY NEW PROBLEMS WITH YOUR MEDICATIONS? YES, STATES SHE HAS NOT NOTICED ANY CHANGE IN PAIN WITH THE CYMBALTA . WHEN DID YOU LAST EAT? ____ . WHEN DID YOU LAST DRINK? ____ . WHAT DID YOU LAST DRINK? ____ . NAME OF PERSON DRIVING YOU HOME? ____ . DO YOU HAVE ANY OTHER QUESTIONS OR CONCERNS YES, STATES THE FIORICET SOMETIMES DOES NOT HELP WITH THE SEVERE PAIN WHICH IS BECOMING MORE OFTEN . VITAL SIGNS WT 180.6 LBS, HT 64 IN, BMI 31.00 INDEX, BP 142/86 MM HG, HR 83 /MIN, RR 18 /MIN, TEMP 97.3 F, OXYGEN SAT % 97%, SAFE IN ENV? (Y/N) YES, NA INITIALS MO 11:57, REVIEWED BY: LEROY. EXAMINATION GENERAL EXAMINATION: GENERAL APPEARANCE:ALERT.ORIENTED . PSYCHAFFECT NORMAL . HEENT:ATRAUMATIC, WITHIN NORMAL LIMITS . NECK:TRACHEA MIDLINE. NO CERVICAL OR SUPRACLAVICULAR LYMPHADENOPATHY NOTED . LUNGS:LUNG BARNES ARE CLEAR TO AUSCULTATION BILATERALLY. GOOD MOVEMENT OF AIR . HEART:S1, S2 IN A REGULAR RATE AND RHYTHM. NO SIGNIFICANT MURMURS, RUBS OR GALLOPS NOTED . ABDOMEN:SOFT, NON-TENDER/NON-DISTENDED, BOWEL SOUNDS PRESENT . NEUROLOGIC EXAM:CN'S II-XII GROSSLY INTACT . 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, UNSPECIFIED MIGRAINE TYPE - G43.919 (PRIMARY) TREATMENT INTRACTABLE MIGRAINE WITHOUT STATUS MIGRAINOSUS, UNSPECIFIED MIGRAINE TYPE STOP FIORICET/CODEINE CAPSULE, [id number] MG, 1 CAPSULE NEEDED, ORALLY, Q6HPRN MDD4 #40 TAB SHOULD LAST 30 DAYS STOP CYMBALTA CAPSULE DELAYED RELEASE PARTICLES, 30 MG, 1 CAPSULE, ORALLY, ONCE A DAY START PROPRANOLOL HCL TABLET, 40 MG, 1 TABLET, ORALLY, BID, 30 DAY(S), 60 TABLET, REFILLS 1 START TRAMADOL HCL TABLET, 50 MG, 1 TABLET NEEDED, ORALLY, EVERY 6 HRS MDD4, 30 DAY(S), 45, REFILLS 1 PREVENTIVE MEDICINE PAIN CLINIC TEACHING: MEDICATIONS NEW MEDICATIONS PROPRANOLOL AND TRAMADOL WRITTEN AND VERBAL INSTRUCTIONS PROVIDED TO PT. . PROCEDURE CODES FA211 ESTABILISHED PATIENT [facility] CHARGE DISPOSITION & COMMUNICATION FOLLOW UP 2 MONTHS ELECTRONICALLY SIGNED BY BRODY ARNOLD ON 07/25/2018 AT 03:22 PM EST DISCLAIMER : THIS IS A VISIT SUMMARY EXTRACTED FROM THE [employer] CHART. IT IS NOT A COPY OF THE [employer] PROGRESS NOTE. NOLAN
== END ==
LOC: M PAIN 11:45
PROVIDERS: ATTEND Nurse Practitioner Family
DX: G43.919 Migraine, unspecified, intractable, without status migrainosus (principal); I10 Essential (primary) hypertension; M54.2 Cervicalgia; D64.9 Anemia, unspecified; K58.9 Irritable bowel syndrome, unspecified; M06.9 Rheumatoid arthritis, unspecified; E28.2 Polycystic ovarian syndrome; E06.3 Autoimmune thyroiditis; Z79.899 Other long term (current) drug therapy

== ENCOUNTER → 2018-07-16 | Outpatient (REF) | payer OTHER | LOC: M SMT 17:32 | PROVIDERS: ATTEND Urology Pediatric Urology | DX: R30.0 Dysuria (principal); N39.0 Urinary tract infection, site not specified ==

== ENCOUNTER → 2018-09-10 | Outpatient (REF) | payer OTHER | LOC: M SMT 13:23 | PROVIDERS: ATTEND Specialist | DX: N39.0 Urinary tract infection, site not specified (principal) | CPT/HCPCS: 87480; 87510; 87660; G0463 ==

== ENCOUNTER → 2018-09-10 | Outpatient (CLI) | payer OTHER ==
--- NOTE | 2018-09-22 01:58 | ECWPNPC ---
PATIENT NAME: JOSIE MARTE : 1975 GENDER: FEMALE VISIT DATE: 09/10/2018 DISCHARGE DATE: 09/10/18 1358 VISIT LOCKED DATE TIME: PHYSICIAN: RAMU FLETCHER RESOURCE: RAMU FLETCHER HISTORY OF PRESENT ILLNESS HISTORY OF PRESENT ILLNESS: HERE FOR F/U OF CHRONIC HEADACHE AND NECK/LOW BACK PAIN.WAS STARTED ON PROPRANALOL AT LAST VISIT BUT PRIMARY CARE HAD HER STOP THIS AND SHE IS NOT CLEAR WHY.FINDS FIORICET SOMEWHAT HELPFUL. MAXALT IS SOMETIMES HELPFUL.HAS 2 TO 3 DAYS PER WEEK WITH SEVERE DISABLING HEADACHES.REPORTS >15 MIGRAINE H/A DAYS PER MONTH.CANT TAKE NSAIDS DUE TO SEVERE GI IRRITATION. PAIN THE PATIENT DESCRIBES THE PAIN... FALL RISK SCREENING: SCREENING :NO FALLS REPORTED IN THE LAST YEAR CURRENT MEDICATIONS TAKING PRILOSEC 20 MG CAPSULE DELAYED RELEASE 1 CAPSULE ORALLY ONCE A DAY TAKING ZANTAC 150 MG TABLET 1 TABLET AT BEDTIME ORALLY ONCE A DAY TAKING BENTYL 10 MG CAPSULE 2 CAPSULES ORALLY PRN TAKING MIRALAX - PACKET 1 PACKET MIXED WITH 8 OUNCES OF FLUID ORALLY ONCE A DAY TAKING MAGNESIUM OXIDE 250 MG TABLET 1 TABLET NEEDED ORALLY TWICE A DAY TAKING LISINOPRIL 20 MG TABLET 1 TABLET ORALLY ONCE A DAY TAKING SYNTHROID 150 MCG TABLET 1 TABLET ON AN EMPTY STOMACH IN THE MORNING ORALLY ONCE A DAY TAKING OTEZLA 20MG ORAL DAILY TAKING ZOFRAN ODT 4 MG TABLET DISINTEGRATING 1 TABLET ON THE TONGUE AND ALLOW TO DISSOLVE ORALLY EVERY 8 HRS TAKING HUMIRA 40 MG/0.8ML PREFILLED SYRINGE KIT 0.8 ML SUBCUTANEOUS EVERY 2 WEEKS, NOTES: UNSURE OF DOSE TAKING TRAMADOL HCL 50 MG TABLET 1 TABLET NEEDED ORALLY EVERY 6 HRS MDD4 TAKING TIZANIDINE HCL 4 MG TABLET 1 TABLET NEEDED ORALLY Q6H PRN TAKING FIORICET/CODEINE [id number] MG CAPSULE 1 CAPSULE NEEDED ORALLY Q6HPRN [id number] TAKING OXYBUTYNIN CHLORIDE ER 5 MG TABLET EXTENDED RELEASE 24 HOUR 1 TABLET ORALLY ONCE A DAY TAKING PYRIDIUM 100 MG TABLET 1 TABLET AFTER MEALS ORALLY THREE TIMES A DAY NEEDED FOR BURNING SENSATION NOT-TAKING PROPRANOLOL HCL 40 MG TABLET 1 TABLET ORALLY BID NOT-TAKING DOXYCYCLINE HYCLATE 100 MG TABLET 1 TABLET ORALLY ONCE A DAY NOT-TAKING FLOMAX 0.4 MG CAPSULE 1 CAPSULE ORALLY ONCE A DAY MEDICATION LIST REVIEWED AND RECONCILED WITH THE PATIENT PAST MEDICAL HISTORY THYROID CANCER HTN CHRONIC NECK PAIN HASHIMOTOS PCOS ANEMIA IBS RHEUMATOID ARTHRITIS ALLERGIES N.K.D.A. SURGICAL HISTORY TOTAL THYROIDECTOMY 2010 SYMPATHOMECTOMY FOR HYPERHIDROSIS 2000 BLADDER SLING 2006 COLONOSCOPY/ENDOSCOPY 05/2019 CYSTOSCOPY 07/2018 FAMILY HISTORY FATHER: , DIAGNOSED WITH HEART DISEASE, HYPERTENSION MOTHER: ALIVE, DIABETES SIBLINGS: ALIVE DAUGHTER(S): ALIVE 3DAUGHTER(S) - HEALTHY. NO KNOWN HX HISTORY OF UROLGICAL DISEASE OF DX. SOCIAL HISTORY GENERAL: TOBACCO USE ARE YOU A:NONSMOKER ARE YOU A:NONSMOKER LATEX QUESTIONNAIRE LATEX ALLERGY : HAVE YOU EVER DEVELOPED ANY TYPE OF REACTION AFTER HANDLING LATEX PRODUCTS SUCH RUBBER GLOVES, CONDOMS, DIAPHRAGMS, BALLOONS, SOCKS, OR UNDERWEAR?NO LATEX ALLERGY : HAVE YOU EVER DEVELOPED ANY TYPE OF REACTION DURING OR AFTER DENTAL APPOINTMENT, VAGINAL/RECTAL EXAMINATION, SURGICAL PROCEDURE, OR ANY OTHER EXPOSURE?NO LATEX RISK : HAVE YOU EVER HAD ANY DIFFICULTY BREATHING OR HIVES AFTER EATING OR HANDLING ANY FRUITS, OR VEGETABLES; SUCH KIWI, BANANAS, STONE FRUITS, OR CHESTNUTSNO LATEX RISK : DO YOU HAVE A PREVIOUS PERSONAL HISTORY OF MORE THAN NINE SURGERIES, SPINA BIFIDA, OR REPEATED CATHERTIZATIONS? NO LATEX RISK : ARE YOU FREQUENTLY EXPOSED TO LATEX PRODUCTS IN YOUR OCCUPATION?NO DATE ASKED : 09/10/2018 LUNG CANCER SCREENING SMOKING STATUS:NON SMOKER SMOKING STATUS:NON SMOKER ALCOHOL SCREENING DID YOU HAVE A DRINK CONTAINING ALCOHOL IN THE PAST YEAR?NO POINTS0 INTERPRETATIONNEGATIVE RECREATIONAL DRUG USE DRUG USE?NO CAFFEINE CAFFEINE USE?NO MORMONISM MORMONISM CHEONDOISM LANGUAGE LANGUAGES SPOKEN:YI EDUCATION LEVEL OF EDUCATION:NOT FINISHED COLLEGE LEARNING BARRIERS / SPECIAL NEEDS BARRIERS TO LEARNING?NO HEARING IMPAIRED?NO VISION IMPAIRED?NO COGNITIVELY IMPAIRED?NO READINESS TO LEARN?YES LEARNING PREFERENCES?YES :DEMONSTRATION/VERBAL INSTRUCTION LEARNING CAPABILITIES PRESENT?YES EMOTIONAL BARRIERS?NO SPECIAL DEVICES?NO CADD OPERATOR NEEDED?NO DOMESTIC VIOLENCE DO YOU FEEL SAFE IN YOUR ENVIRONMENT?YES 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 EXERCISE: WALKS. MARITAL STATUS: . OTHERS AT HOME: SPOUSE, CHILD. PAIN CLINIC PFS, CLERGY, PUBLIC HEALTH REFERRALS PFS REFERRAL NEEDED?NO CLERGY REFERRAL NEEDED?NO PUBLIC HEALTH REFERRAL NEEDED?NO HAS THE PATIENT BEEN EDUCATED REGARDING HIS/HER PLAN OF CARE?YES 01/18 CERVICAL EPIDURAL HAS THE PATIENT BEEN EDUCATED REGARDING PAIN, THE RISK FOR PAIN, THE IMPORTANCE OF EFFECTIVE PAIN MANAGEMENT, AND THE PAIN ASSESSMENT PROCESS?YES ADVANCE DIRECTIVE ADVANCE DIRECTIVE DISCUSSED WITH PATIENT:YES STATES HER , APOLLO, IS HER HCP [id number] REVIEWED WITH PATIENT 07/14/18 1218 JS. HOSPITALIZATION/MAJOR DIAGNOSTIC PROCEDURE CHILDBIRTH STOMACH PAIN 6 YEARS AGO REVIEW OF SYSTEMS REVIEWED BY: PROVIDER: RAMU SKINNER . CONSTITUTIONAL: ANY CHANGE IN YOUR MEDICAL CONDITION? NO . CHILLS NO . FEVER NO . INFECTION: DO YOU HAVE NEW INFECTIONS? NO . DO YOU HAVE HISTORY OF MRSA? NO . MUSCULOSKELETAL: ANY NEW PATTERNS OF PAIN OR NUMBNESS? NO . GASTROENTEROLOGY: ANY NEW CHANGE IN BOWEL CONTROL? NO . GENITOURINARY: ANY NEW CHANGE IN BLADDER CONTROL? NO . IS THERE A CHANCE YOU COULD BE ? NO . HEMATOLOGY/LYMPH: DO YOU TAKE ANY BLOOD THINNERS? (FOR EXAMPLE- COUMADIN, PLAVIX, AGGRENOX, PLATEL, PRADAXA, OR XARELTO) NO . WHEN WAS YOUR LAST DOSE? DATE: TIME: . NEUROLOGY: HAVE YOU FALLEN IN THE PAST 12 MONTHS? NO . ANY NEW EXTREMITY NUMBNESS OR WEAKNESS? NO . CARDIOLOGY: DO YOU HAVE A PACEMAKER OR DEFIBRILLATOR? NO . RESPIRATORY: HAVE YOU BEEN SICK IN THE PAST WEEK? NO . FEVER NO . FLU LIKE SYMPTOMS? NO . COUGH NO . INTEGUMENTARY: DO YOU HAVE ANY RASHES OR OPEN SORES? NO . ALLERGIC/IMMUNO: ARE YOU ALLERGIC TO IV DYE? NO . ANY NEW ALLERGIES? NO . PSYCHIATRIC: DO YOU HAVE THOUGHTS OF HURTING YOURSELF OR SOMEONE ELSE? NO . ARE YOU ABUSED, NEGLECTED, OR IN AN UNSAFE ENVIRONMENT? NO . ENDOCRINOLOGY: ARE YOU DIABETIC? NO . OTHER: DO YOU NEED ANY PRESCRIPTIONS? NO . IF YES, PLEASE LIST: ____ . ANY NEW PROBLEMS WITH YOUR MEDICATIONS? YES,PT STATES ALL OF PAIN MEDS DO NOT HELP PAIN DURING REALLY BAD DAYS. PT STATES SHE HAD 6 REALLY BAD DAYS THIS MONTH . WHEN DID YOU LAST EAT? ____ . WHEN DID YOU LAST DRINK? ____ . WHAT DID YOU LAST DRINK? ____ . NAME OF PERSON DRIVING YOU HOME? ____ . DO YOU HAVE ANY OTHER QUESTIONS OR CONCERNS NO . VITAL SIGNS WT 176 LBS, HT 64 IN, BMI 30.21 INDEX, BP 114/66 MM HG, HR 69 /MIN, RR 16 /MIN, TEMP 98.6 F, OXYGEN SAT % 97, REVIEWED BY: [email or web address]. EXAMINATION GENERAL EXAMINATION: GENERAL APPEARANCE:ALERT.ORIENTED . PSYCHAFFECT NORMAL . HEENT:ATRAUMATIC, WITHIN NORMAL LIMITS . NECK:TRACHEA MIDLINE. NO CERVICAL OR SUPRACLAVICULAR LYMPHADENOPATHY NOTED . LUNGS:LUNG BARNES ARE CLEAR TO AUSCULTATION BILATERALLY. GOOD MOVEMENT OF AIR . HEART:S1, S2 IN A REGULAR RATE AND RHYTHM. NO SIGNIFICANT MURMURS, RUBS OR GALLOPS NOTED . ABDOMEN:SOFT, NON-TENDER/NON-DISTENDED, BOWEL SOUNDS PRESENT . NEUROLOGIC EXAM:CN'S II-XII GROSSLY INTACT . ASSESSMENTS MYALGIA - M79.1 (PRIMARY) RHEUMATOID ARTHRITIS INVOLVING MULTIPLE JOINTS - M06.9 TREATMENT MYALGIA CONTINUE TRAMADOL HCL TABLET, 50 MG, 1 TABLET NEEDED, ORALLY, EVERY 6 HRS MDD4 CONTINUE TIZANIDINE HCL TABLET, 4 MG, 1 TABLET NEEDED, ORALLY, Q6H PRN CONTINUE FIORICET/CODEINE CAPSULE, [id number] MG, 1 CAPSULE NEEDED, ORALLY, Q6HPRN [id number] NOTES: BOTOX. REFERRAL TO:[facility] REASON:MIGRAINE HEADACHE,AUTH PENDING, PT INFORMED THAT SHE WILL NEED TO CONTACT HER [employer] FOR THE REFERRAL AUTH PREVENTIVE MEDICINE PAIN CLINIC TEACHING: PROCEDURE TEACHING PATIENT GIVEN HANDOUT ON BOTOX INJECTIONS, REVIEWED WITH PATIENT. ALSO REVIEWED PRE-PROCEDURE INSTRUCTIONS. PATIENT VERBALIZED AN UNDERSTANDING. ONEYDA GARCIA 09/10/2018 1:59:25 PM > . PROCEDURE CODES FA211 ESTABILISHED PATIENT [facility] CHARGE DISPOSITION & COMMUNICATION FOLLOW UP 1 MOS POST (REASON: BOTOX) ELECTRONICALLY SIGNED BY BRODY ARNOLD ON 09/21/2018 AT 03:38 PM EDT DISCLAIMER : THIS IS A VISIT SUMMARY EXTRACTED FROM THE [employer] CHART. IT IS NOT A COPY OF THE [employer] PROGRESS NOTE. NOLAN
== END ==
LOC: M PAIN 13:00
PROVIDERS: ATTEND Nurse Practitioner Family
DX: M79.18 Myalgia, other site (principal); M06.9 Rheumatoid arthritis, unspecified; I10 Essential (primary) hypertension; D64.9 Anemia, unspecified; E28.2 Polycystic ovarian syndrome; E89.0 Postprocedural hypothyroidism; K58.9 Irritable bowel syndrome, unspecified; Z85.850 Personal history of malignant neoplasm of thyroid; Z79.891 Long term (current) use of opiate analgesic; Z79.899 Other long term (current) drug therapy

== ENCOUNTER → 2018-09-21 | Outpatient (REF) | payer OTHER ==
[2018-09-21 14:03] LABS: BASO % 0.6 % (0.0-1.0); EOS # 0.1 10^3/uL (0.0-0.50); EOS % 0.9 % (0.0-3.0); HEMATOCRIT 40.4 % (36.0-47.0); HEMOGLOBIN 12.1 g/dl (12.0-15.5); LYMPH # 1.4 10^3/uL (1.5-4.5); LYMPH % 19.8 % (24.0-44.0); MEAN CORPUSCULAR HEMOGLOBIN 26.2 pg (27.0-33.0); MEAN CORPUSCULAR VOLUME 87.4 fl (80.0-96.0); MONO # 0.3 10^3/uL (0.0-0.8); MONO % 4.7 % (0.0-5.0); NEUTROPHILS % 73.6 % (36.0-66.0); PLATELET COUNT, AUTOMATED 573 10^3/uL (150-450); RED BLOOD COUNT 4.62 10^6/uL (4.00-5.40); WHITE BLOOD COUNT 6.8 10^3/uL (4.0-10.0)
[2018-09-21 14:29] LABS: HEMOGLOBIN A1c 5.7 %
[2018-09-21 14:41] LABS: ALBUMIN 3.9 GM/DL (3.2-5.2); ALT/SGPT 14 U/L (12-78); BILIRUBIN,TOTAL 0.3 MG/DL (0.2-1.0); BLOOD UREA NITROGEN 12 MG/DL (7-18); CALCIUM LEVEL 8.4 MG/DL (8.5-10.1); CARBON DIOXIDE LEVEL 25 MEQ/L (21-32); CHLORIDE LEVEL 105 MEQ/L (98-107); CPK CREATINE PHOSPHOKINASE 52 U/L (26-192); CREATININE FOR GFR 0.64 MG/DL (0.55-1.30); FERRITIN 6 NG/ML (8-252); FOLATE 9.3 NG/ML (>5.4); FREE T4 1.35 NG/DL (0.76-1.46); GLOMERULAR FILTRATION RATE > 60.0 (>58); GLUCOSE, FASTING 87 MG/DL (70-100); IRON (FE) 52 UG/DL (50-170); PERCENT SATURATION 11.9 % (13.2-45.0); POTASSIUM SERUM 4.3 MEQ/L (3.5-5.1); RHEUMATOID FACTOR QUANT 35.7 IU/ML (<15.0); SODIUM LEVEL 136 MEQ/L (136-145); THYROID STIMULATING HORMONE 0.398 uIU/ML (0.358-3.740); TOTAL 25(OH) VITAMIN D 20.4 NG/ML (30.0-100.0); TOTAL IRON BINDING CAPACITY 436 UG/DL (250-450); VITAMIN B12 LEVEL 420 PG/ML (247-911)
[2018-09-21 14:43] LABS: ERYTHROCYTE SEDIMENTATION RATE 25 mm/hr (0-20)
== END ==
LOC: M LABNEURO 13:23
PROVIDERS: ATTEND Psychiatry & Neurology Neurology
DX: R20.0 Anesthesia of skin (principal); R25.1 Tremor, unspecified; M79.10 Myalgia, unspecified site; A69.20 Lyme disease, unspecified; E06.9 Thyroiditis, unspecified; E55.9 Vitamin D deficiency, unspecified; D64.9 Anemia, unspecified

== ENCOUNTER 2018-10-06 10:35 | Day surgery (SDC) | payer OTHER ==
[~2018-10-06] VITALS: Ht 162.6 cm; Wt 76.7 kg
[~2018-10-06 10:35] MED LIST changes: +HUMI40KI2 SC; +KETOROLAC 60 MG/2 ML VIAL (J1885) As Ordered ONE; +LIDOCAINE 2% INJ 100 MG/5 ML SDV (FOR ANES.) As Ordered ONE; +LISI40TA PO; +MIDAZOLAM INJ 2 MG/2 ML VIAL (J2250) As Ordered ONE; +ONDANSETRON 4MG/2ML VIAL (J2405) As Ordered ONE; +PROPOFOL 200 MG/20 ML VIAL As Ordered ONE; +SPIR500T PO; +dexameTHASONE 4 MG/ML 1ML VIAL (J1100) As Ordered ONE; +fentaNYL 100 MCG/2 ML INJECTION (J3010) As Ordered ONE
[2018-10-06] MEDS ORDERED: BUPIVACAINE/EPIN 0.25% 30 ML VIAL As Ordered ONE (10:49)
[2018-10-06] MEDS ORDERED: SILVER NITRATE APPLICATOR As Ordered ONE (10:49)
[2018-10-06 11:02] LABS: HEMOGLOBIN 11.4 g/dl (12.0-15.5); MEAN CORPUSCULAR HEMOGLOBIN 26.5 pg (27.0-33.0); MEAN CORPUSCULAR HGB CONC 30.8 g/dl (32.0-36.5); PLATELET COUNT, AUTOMATED 489 10^3/uL (150-450); WHITE BLOOD COUNT 7.3 10^3/uL (4.0-10.0)
[2018-10-06] MEDS ORDERED: SEVOFLURANE INHAL SOLN 250 ML BTL As Ordered ONE (11:06)
[2018-10-06 11:12] LABS: URINE PREG TEST NEGATIVE (NEGATIVE)
[2018-10-06 11:19] LABS: HCG, SERUM QUALITATIVE NEGATIVE (NEGATIVE)
[2018-10-06] MEDS ORDERED: ePHEDrine SULFATE 25 MG/5 ML(5MG/ML) SYRINGE As Ordered ONE (11:53)
[2018-10-06] MEDS ORDERED: METOCLOPRAMIDE INJ 10MG/2ML VIAL (J2765) As Ordered ONE (12:05)
[2018-10-06] MEDS ORDERED: LR 1,000 ML IV SCH (12:45)
[2018-10-06] MEDS ORDERED: PERCOCET 5MG/325MG TAB PO PRN ×2 (12:45→13:45)
[2018-10-06] MEDS ORDERED: ONDANSETRON 4MG/2ML VIAL (J2405) As Ordered ONE (12:47)
[2018-10-06] MEDS: fentaNYL 100 MCG/2 ML INJECTION (J3010) IV PRN ×8 (12:50→13:45)
[2018-10-06] MEDS ORDERED: ONDANSETRON 4MG/2ML VIAL (J2405) IV PRN (13:00)
[2018-10-06] MEDS ORDERED: fentaNYL 100 MCG/2 ML INJECTION (J3010) As Ordered ONE (13:31)
[2018-10-06] MEDS ORDERED: KETOROLAC 30 MG/ML VIAL (J1885) IV PRN (14:00)
[2018-10-06 15:00] VITALS: BP 124/75
--- NOTE | 2018-10-07 11:15 | RO ---
DATE OF PROCEDURE: 10/06/2018 PREOPERATIVE DIAGNOSIS: Abnormal uterine bleeding and heavy menstrual bleeding. POSTOPERATIVE DIAGNOSIS: Abnormal uterine bleeding and heavy menstrual bleeding. PROCEDURE: Diagnostic hysteroscopy and then NovaSure endometrial ablation. SURGEON: Dr. Keith CHRISTIAN SCIENCE READER: None. ANESTHESIA: General anesthesia. FLUIDS: 500 mL of Lactated Ringer's. URINE OUTPUT: 100 mL via straight cath. ESTIMATED BLOOD LOSS: 5 mL. COMPLICATIONS: None. ANTIBIOTICS: None indicated. DETAILED PROCEDURE DESCRIPTION: The risks, benefits, indications and alternatives of the procedure were reviewed with the patient and informed consent was obtained. The patient was taken to the operating room where general anesthesia was obtained without difficulty. The patient was then placed in the lithotomy position using gel padded Darryl stirrups. An exam under anesthesia was then performed and was significant for a mobile midline 10 week sized anteverted uterus with no adnexal masses palpated. The vagina was inspected and again no evidence of vaginal mesh erosion was identified. The patient was then prepped and draped in the usual sterile fashion and the bladder was drained using an in and out catheter. A sterile speculum was placed in the patient's vagina and the cervix was visualized. A single tooth tenaculum was used to grasp the anterior lip of the cervix. A uterine sound was then gently placed into the uterus, which sounded to 9 cm in length. The cervix was then gently serially dilated to a size 12 Estonian with a Hanks dilator. The hysteroscope was first primed. The hysteroscope was then advanced through the endocervical canal under direct visualization. After distention of the uterus with warm saline, a systematic examination of the intrauterine cavity was performed. The tubal ostia were visualized bilaterally. There were no endometrial lesions such as polyps or fibroids. The hysteroscope was then removed from the uterus. The intrauterine cavity measurements were then obtained. The uterine cavity length was noted to be 5 cm and the cervical length was noted to be 4 cm. The NovaSure device was then opened on the field and the cavity length was set. The NovaSure device was then placed into the uterine cavity and deployed. The usual maneuvers were performed per the manufacturers guidelines, and a cavity width of 3.5 cm was obtained. The cavity integrity was assessed. The NovaSure device was then activated and the cavity was ablated for 120 seconds at a power of 96 matthews after confirming that the uterine cavity was intact and there was no perforation. The NovaSure device was then carefully removed from the endometrial cavity. The single tooth tenaculum was then removed from the anterior lip of the cervix. The tenaculum sites were noted to be hemostatic. All instruments were then removed from the patient's vagina. A vaginal sweep was performed and confirmed no routine foreign objects remained in the vagina. At the completion of the case, the sponge, instrument and needle counts were correct times two. The patient tolerated the procedure well and was taken to the postanesthesia care unit (PACU) in stable condition. NOLAN
== END 2018-10-06 15:05 | disposition home or self-care (01) ==
LOC: M SDC 10:35
PROVIDERS: ATTEND Obstetrics & Gynecology
DX: N92.0 Excessive and frequent menstruation with regular cycle (principal); I10 Essential (primary) hypertension; E03.9 Hypothyroidism, unspecified; K58.8 Other irritable bowel syndrome; K21.9 Gastro-esophageal reflux disease without esophagitis; Z79.899 Other long term (current) drug therapy
CPT/HCPCS: 36415; 58563; 84703; 85027; J1100; J1885; J2250; J2405; J2765; J3010

== ENCOUNTER → 2019-02-25 | Outpatient (CLI) | payer OTHER ==
[~2019-02-25] MED LIST changes: -KETOROLAC 60 MG/2 ML VIAL (J1885) As Ordered ONE; -LIDOCAINE 2% INJ 100 MG/5 ML SDV (FOR ANES.) As Ordered ONE; +LISI20TA20 PO; -LISI20TA3 PO; -MIDAZOLAM INJ 2 MG/2 ML VIAL (J2250) As Ordered ONE; -ONDANSETRON 4MG/2ML VIAL (J2405) As Ordered ONE; -PROPOFOL 200 MG/20 ML VIAL As Ordered ONE; +ZANT150T40 PO; -ZANTTAB PO; -dexameTHASONE 4 MG/ML 1ML VIAL (J1100) As Ordered ONE; -fentaNYL 100 MCG/2 ML INJECTION (J3010) As Ordered ONE
--- NOTE | 2019-03-16 00:32 | ECWPNPC ---
PATIENT NAME: JOSIE MARTE : 1975 GENDER: FEMALE VISIT DATE: 02/25/2019 DISCHARGE DATE: 02/25/19 1237 VISIT LOCKED DATE TIME: PHYSICIAN: RAMU FLETCHRE RESOURCE: RAMU FLETCHER REASON FOR APPOINTMENT 1. 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 PAIN THE PATIENT DESCRIBES THE PAIN... FALL RISK SCREENING: SCREENING :NO FALLS REPORTED IN THE LAST YEAR CURRENT MEDICATIONS TAKING PRILOSEC 20 MG CAPSULE DELAYED RELEASE 1 CAPSULE ORALLY ONCE A DAY TAKING ZANTAC 150 MG TABLET 1 TABLET AT BEDTIME ORALLY ONCE A DAY TAKING BENTYL 10 MG CAPSULE 2 CAPSULES ORALLY PRN TAKING MIRALAX - PACKET 1 PACKET MIXED WITH 8 OUNCES OF FLUID ORALLY ONCE A DAY TAKING MAGNESIUM OXIDE 250 MG TABLET 1 TABLET NEEDED ORALLY TWICE A DAY TAKING LISINOPRIL 20 MG TABLET 1 TABLET ORALLY ONCE A DAY TAKING SYNTHROID 137 MCG TABLET 1 TABLET ON AN EMPTY STOMACH IN THE MORNING ORALLY ONCE A DAY TAKING OTEZLA 20MG ORAL DAILY TAKING ZOFRAN ODT 4 MG TABLET DISINTEGRATING 1 TABLET ON THE TONGUE AND ALLOW TO DISSOLVE ORALLY EVERY 8 HRS TAKING HUMIRA 40 MG/0.8ML PREFILLED SYRINGE KIT 0.8 ML SUBCUTANEOUS EVERY 2 WEEKS, NOTES: UNSURE OF DOSE TAKING OXYBUTYNIN CHLORIDE ER 5 MG TABLET EXTENDED RELEASE 24 HOUR 1 TABLET ORALLY ONCE A DAY TAKING PYRIDIUM 100 MG TABLET 1 TABLET AFTER MEALS ORALLY THREE TIMES A DAY NEEDED FOR BURNING SENSATION TAKING TRAMADOL HCL 50 MG TABLET 1 TABLET NEEDED ORALLY EVERY 6 HRS MDD4 TAKING TIZANIDINE HCL 4 MG TABLET 1 TABLET NEEDED ORALLY Q6H PRN TAKING FIORICET/CODEINE [id number] MG CAPSULE 1 CAPSULE NEEDED ORALLY Q6HPRN [id number] MEDICATION LIST REVIEWED AND RECONCILED WITH THE PATIENT PAST MEDICAL HISTORY THYROID CANCER HTN CHRONIC NECK PAIN HASHIMOTOS PCOS ANEMIA IBS RHEUMATOID ARTHRITIS ALLERGIES N.K.D.A. SURGICAL HISTORY TOTAL THYROIDECTOMY 2010 SYMPATHOMECTOMY FOR HYPERHIDROSIS 2000 BLADDER SLING 2006 COLONOSCOPY/ENDOSCOPY 05/2019 CYSTOSCOPY 07/2018 UTERINE ABLATION 09/2018 FAMILY HISTORY FATHER: , DIAGNOSED WITH HYPERTENSION, UNSPECIFIED HEART DISEASE MOTHER: ALIVE, DIABETES SIBLINGS: ALIVE DAUGHTER(S): ALIVE 3DAUGHTER(S) - HEALTHY. NO KNOWN HX HISTORY OF UROLGICAL DISEASE OF DX. SOCIAL HISTORY GENERAL: TOBACCO USE ARE YOU A:NONSMOKER ARE YOU A:NONSMOKER OTHERS AT HOME: SPOUSE, CHILD. EDUCATION LEVEL OF EDUCATION:NOT FINISHED COLLEGE DIET: REGULAR. LANGUAGE LANGUAGES SPOKEN:CROATIAN DOMESTIC VIOLENCE DO YOU FEEL SAFE IN YOUR ENVIRONMENT?YES RECREATIONAL DRUG USE DRUG USE?NO EXERCISE: WALKS. LEARNING BARRIERS / SPECIAL NEEDS BARRIERS TO LEARNING?NO HEARING IMPAIRED?NO VISION IMPAIRED?NO COGNITIVELY IMPAIRED?NO READINESS TO LEARN?YES LEARNING PREFERENCES?YES :DEMONSTRATION/VERBAL INSTRUCTION LEARNING CAPABILITIES PRESENT?YES EMOTIONAL BARRIERS?NO SPECIAL DEVICES?NO FLIGHT COMMUNICATIONS OFFICER NEEDED?NO LUNG CANCER SCREENING SMOKING STATUS:NON SMOKER SMOKING STATUS:NON SMOKER PAIN CLINIC PFS, CLERGY, PUBLIC HEALTH REFERRALS PFS REFERRAL NEEDED?NO CLERGY REFERRAL NEEDED?NO PUBLIC HEALTH REFERRAL NEEDED?NO HAS THE PATIENT BEEN EDUCATED REGARDING HIS/HER PLAN OF CARE?YES 8/ CERVICAL EPIDURAL HAS THE PATIENT BEEN EDUCATED REGARDING PAIN, THE RISK FOR PAIN, THE IMPORTANCE OF EFFECTIVE PAIN MANAGEMENT, AND THE PAIN ASSESSMENT PROCESS?YES LATEX QUESTIONNAIRE LATEX ALLERGY : HAVE YOU EVER DEVELOPED ANY TYPE OF REACTION AFTER HANDLING LATEX PRODUCTS SUCH RUBBER GLOVES, CONDOMS, DIAPHRAGMS, BALLOONS, SOCKS, OR UNDERWEAR?NO LATEX ALLERGY : HAVE YOU EVER DEVELOPED ANY TYPE OF REACTION DURING OR AFTER DENTAL APPOINTMENT, VAGINAL/RECTAL EXAMINATION, SURGICAL PROCEDURE, OR ANY OTHER EXPOSURE?NO LATEX RISK : HAVE YOU EVER HAD ANY DIFFICULTY BREATHING OR HIVES AFTER EATING OR HANDLING ANY FRUITS, OR VEGETABLES; SUCH KIWI, BANANAS, STONE FRUITS, OR CHESTNUTSNO LATEX RISK : DO YOU HAVE A PREVIOUS PERSONAL HISTORY OF MORE THAN NINE SURGERIES, SPINA BIFIDA, OR REPEATED CATHERIZATIONS? NO LATEX RISK : ARE YOU FREQUENTLY EXPOSED TO LATEX PRODUCTS IN YOUR OCCUPATION?NO DATE ASKED : 09/10/2018 CAFFEINE CAFFEINE USE?NO ADVANCE DIRECTIVE ADVANCE DIRECTIVE DISCUSSED WITH PATIENT:YES STATES HER , APOLLO, IS HER HCP [id number] MORMONISM MORMONISM SCIENTOLOGIST MARITAL STATUS: . 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 REVIEWED WITH PATIENT 07/14/18 1218 JSREVIEWED WITH PATIENT 02/25/19 1156 LAS. HOSPITALIZATION/MAJOR DIAGNOSTIC PROCEDURE CHILDBIRTH STOMACH PAIN 6 YEARS AGO REVIEW OF SYSTEMS REVIEWED BY: PROVIDER: RAMU SKINNER . CONSTITUTIONAL: ANY CHANGE IN YOUR MEDICAL CONDITION? NO . CHILLS NO . FEVER NO . INFECTION: DO YOU HAVE NEW INFECTIONS? NO . DO YOU HAVE HISTORY OF MRSA? NO . MUSCULOSKELETAL: ANY NEW PATTERNS OF PAIN OR NUMBNESS? NO . GASTROENTEROLOGY: ANY NEW CHANGE IN BOWEL CONTROL? NO . GENITOURINARY: ANY NEW CHANGE IN BLADDER CONTROL? NO . IS THERE A CHANCE YOU COULD BE ? NO . HEMATOLOGY/LYMPH: DO YOU TAKE ANY BLOOD THINNERS? (FOR EXAMPLE- COUMADIN, PLAVIX, AGGRENOX, PLATEL, PRADAXA, OR XARELTO) NO . WHEN WAS YOUR LAST DOSE? DATE: TIME: . NEUROLOGY: HAVE YOU FALLEN IN THE PAST 12 MONTHS? NO . ANY NEW EXTREMITY NUMBNESS OR WEAKNESS? NO . CARDIOLOGY: DO YOU HAVE A PACEMAKER OR DEFIBRILLATOR? NO . RESPIRATORY: HAVE YOU BEEN SICK IN THE PAST WEEK? NO . FEVER NO . FLU LIKE SYMPTOMS? NO . COUGH NO . INTEGUMENTARY: DO YOU HAVE ANY RASHES OR OPEN SORES? NO . ALLERGIC/IMMUNO: ARE YOU ALLERGIC TO IV DYE? NO . ANY NEW ALLERGIES? NO . PSYCHIATRIC: DO YOU HAVE THOUGHTS OF HURTING YOURSELF OR SOMEONE ELSE? NO . ARE YOU ABUSED, NEGLECTED, OR IN AN UNSAFE ENVIRONMENT? NO . ENDOCRINOLOGY: ARE YOU DIABETIC? NO . OTHER: DO YOU NEED ANY PRESCRIPTIONS? YES . IF YES, PLEASE LIST: ____FIORICET, HYDROCODONE . ANY NEW PROBLEMS WITH YOUR MEDICATIONS? YES PT REPORTS TRAMADOL IS CAUSING HER INCREASED CONSTIPATION . WHEN DID YOU LAST EAT? ____ . WHEN DID YOU LAST DRINK? ____ . WHAT DID YOU LAST DRINK? ____ . NAME OF PERSON DRIVING YOU HOME? ____ . DO YOU HAVE ANY OTHER QUESTIONS OR CONCERNS NO . VITAL SIGNS WT 164.2 LBS, HT 64 IN, BMI 28.18 INDEX, BP 128/84 MM HG, HR 72 /MIN, RR 18 /MIN, TEMP 97.6 F, OXYGEN SAT % 98%, SAFE IN ENV? (Y/N) YES, NA INITIALS CA 11:36, REVIEWED BY: VIVIANA. EXAMINATION GENERAL EXAMINATION: GENERALAWAKE,ALERT ,PLEAASANT . PSYCHAFFECT NORMAL . LUNGS:LUNG BARNES ARE CLEAR TO AUSCULTATION BILATERALLY. GOOD MOVEMENT OF AIR . HEART:S1, S2 IN A REGULAR RATE AND RHYTHM. NO SIGNIFICANT MURMURS, RUBS OR GALLOPS NOTED . ASSESSMENTS CERVICAL DISC DISORDER WITH RADICULOPATHY OF CERVICOTHORACIC REGION - M50.13 (PRIMARY) RHEUMATOID ARTHRITIS INVOLVING MULTIPLE SITES WITH POSITIVE RHEUMATOID FACTOR - M05.79 HEADACHE DISORDER - R51 TREATMENT CERVICAL DISC DISORDER WITH RADICULOPATHY OF CERVICOTHORACIC REGION REFILL FIORICET/CODEINE CAPSULE, [id number] MG, 1 CAPSULE NEEDED, ORALLY, Q6HPRN [id number], 30 DAYS, 30, REFILLS 0 NOTES: ISTOP REGISTRY REVIEWED AND DEMONSTRATES COMPLLIANCE. BRINGS IN MEDICATIONS WHICH IS APPROPRIATE FOR WHAT WAS DISPENSED. RECENT URINE TOXICOLOGY REVIEWED. NO UNAUTHORIZED MEDICATIONS. NO ILLICIT SUBSTANCES AND PRESCRIBED MEDICATIONS WERE PRESENT. , RISKS OF NARCOTIC/OPIOD MEDICATIONS INCLUDES BUT IS NOT LIMITED TO RISK OF DEPENDANCE/DEVELOPMENT OF ADDICTION, MOOD DISTURBANCE AND DEPRESSION, OSTEOPOROSIS, HORMONAL AND LABIDAL CHANGES, RESPIRATORY DEPRESSION AND . PATIENT IS ADVISED NOT TO DRIVE OR DRINK ALCOHOL WHILE ON THESE MEDICATIONS. REFERRAL TO:[facility] REASON:CHRONIC HEAD,NECK AND LBP-HX OF RHEUMATOID DISEASE PROCEDURE CODES FA211 ESTABILISHED PATIENT [facility] FACILITY CHARGE DISPOSITION & COMMUNICATION FOLLOW UP NO F/U NECESSARY (REASON: REFER TO [facility]) ELECTRONICALLY SIGNED BY BRODY ARNOLD ON 03/15/2019 AT 03:43 PM EDT DISCLAIMER : THIS IS A VISIT SUMMARY EXTRACTED FROM THE [employer] CHART. IT IS NOT A COPY OF THE [employer] PROGRESS NOTE. NOLAN
== END ==
LOC: M PAIN 11:15
PROVIDERS: ATTEND Nurse Practitioner Family
DX: M50.13 Cervical disc disorder with radiculopathy, cervicothoracic region (principal); M05.79 Rheumatoid arthritis with rheumatoid factor of multiple sites without organ or systems involvement; R51 Headache; G89.29 Other chronic pain; I10 Essential (primary) hypertension; Z79.899 Other long term (current) drug therapy